=== PATIENT | female | born 1990 | race Hispanic/Latino ===

== ENCOUNTER 2018-04-09 12:22 | Emergency (ER) | payer OTHER ==
[~2018-04-09] VITALS: Ht 162.6 cm; Wt 79.0 kg
[~2018-04-09 12:22] MED LIST: AMOXICILLIN500 MG PO; BACTRIM DS1 TAB PO; DYMISTA1 SPR; NO CURRENT MEDS; NO HOME MEDS; ROBITUSSIN AC10 ML PO; ULTRAM50 M1 OR; ULTRAM50 MG OR; VENTOLIN HF1 IN; ZITHROMAX500 MG PO; ZPAK PO
[2018-04-09] MEDS ORDERED: VITAMIN D PO (12:30)
[2018-04-09] MEDS ORDERED: FERRAPLUS 90 PO (12:30)
[2018-04-09] MEDS ORDERED: SINGULAIR10 MG PO (12:30)
[2018-04-09] MEDS ORDERED: RHINOCORT NAB (12:31)
[2018-04-09] MEDS ORDERED: MOTRIN800 MG PO (12:45)
[2018-04-09] MEDS ORDERED: FLEXERIL PO (12:45)
[2018-04-09 13:14] VITALS: BP 133/97
== END 2018-04-09 13:14 | disposition home or self-care (01) | DRG 563 ==
LOC: ED 12:22
DX: S29.012A Strain of muscle and tendon of back wall of thorax, initial encounter (principal); V43.52XA Car driver injured in collision with other type car in traffic accident, initial encounter